=== PATIENT | male | born 1990 | race Caucasian/White ===

== ENCOUNTER 2016-07-13 16:18 | Emergency (ER) | payer OTHER ==
[2016-07-13 16:49] VITALS: BP 96/48; PULSE 66; RESP 16; TEMP 98; O2SAT 100
--- NOTE | 2016-07-13 17:31 | ED PDOC ---
HPI: Skin/Bite Injury Time Seen by Provider: 07/13/16 17:15 Chief Complaint (Nursing): Lower Extremity Problem/Injury Chief Complaint (Provider): left foot History Per: Patient History/Exam Limitations: no limitations Onset/Duration Of Symptoms: Days (x 2 weeks) Current Symptoms Are (Timing): Still Present Additional Complaint(s): Power Starr is a 25 year old male, with a previous medical history of asthma , who presents to the ED for evaluation of his left foot. Pt reports skin is itchy and noted changes in the skin of his foot. Pt denies any numbness, tingling, fever or chills. Pt denies any additional complaints at this time. PMD: [facility] Past Medical History Reviewed: Historical Data, Nursing Documentation, Vital Signs Vital Signs: Last Vital Signs Temp 98.0 F 07/13/16 16:47 Pulse 66 07/13/16 16:47 Resp 16 07/13/16 16:47 BP 96/48 L 07/13/16 16:47 Pulse Ox 100 07/13/16 23:39 - Medical History PMH: Asthma, Depression Denies: Diabetes, Hepatitis, HIV, HTN, Chronic Kidney Disease, Seizures, Sexually Transmitted Disease - Surgical History Surgical History: No Surg Hx - Family History Family History: States: No Known Family Hx - Home Medications Home Medications: Ambulatory Orders Medication Instructions Recorded Butenafine HCl [Lotrimin Ultra] 0.5 gm TP BID #30 cream..g. 07/13/16 - Allergies Allergies/Adverse Reactions: Allergies Allergy/AdvReac Type Severity Reaction Status Date / Time seafood Allergy Mild RASH Uncoded 07/13/16 16:46 Review of Systems ROS Statement: Except As Marked, All Systems Reviewed And Found Negative Skin: Positive for: Other (itching left foot) Physical Exam - Reviewed Nursing Documentation Reviewed: Yes Vital Signs Reviewed: Yes - Physical Exam Appears: Positive for: Well, Non-toxic, No Acute Distress Extremity: Positive for: Normal ROM, Capillary Refill (< 2 seconds), Other ( patches of thick scally material along plantar surface of left foot with mild scaly dry patches between the toes.). Negative for: Tenderness, Pedal Edema, Calf Tenderness Neurologic/Psych: Positive for: Alert, Oriented - ECG O2 Sat by Pulse Oximetry: 100 (RA) Pulse Ox Interpretation: Normal Medical Decision Making Medical Decision Making: Initial Impression: Tinea Pedis Initial Plan: * physical exam * disposition Scribe Attestation: Documented by Val Ma, acting as a scribe for Jairon Mohan PA-C. Provider Scribe Attestation: All medical record entries made by the Scribe were at my direction and personally dictated by me. I have reviewed the chart and agree that the record accurately reflects my personal performance of the history, physical exam, medical decision making, and the department course for this patient. I have also personally directed, reviewed, and agree with the discharge instructions and disposition. Disposition - Clinical Impression Clinical Impression: Tinea pedis - Patient ED Disposition Is Patient to be Admitted: No - Disposition Referrals: [facility] [Outside] Disposition: Routine/Home Disposition Time: 17:25 Condition: FAIR Prescriptions: Butenafine HCl [Lotrimin Ultra] 0.5 gm TP BID #30 cream..g. Instructions: Tinea Pedis (ED) Forms: [facility] ED School/Work Excuse
== END 2016-07-13 17:25 | disposition home or self-care (01) ==
LOC: H.ER 16:18
DX: B35.3 Tinea pedis (principal)

== ENCOUNTER 2016-11-15 17:28 | Emergency (ER) | payer OTHER ==
[2016-11-15 17:34] VITALS: BP 123/59; PULSE 63; RESP 16; TEMP 97.8; O2SAT 99
--- NOTE | 2016-11-15 17:57 | ED PDOC ---
Upper Extremity Pain/Injury Time Seen by Provider: 11/15/16 17:41 Chief Complaint (Nursing): Upper Extremity Problem/Injury Chief Complaint (Provider): Right hand pain History Per: Patient History/Exam Limitations: no limitations Current Symptoms Are (Timing): Still Present Quality: "Pain" Additional Complaint(s): Power Starr is a 26 y/o left-handed dominant male presenting to the ER on with complaints of right hand pain. Patient reports he sustained the pain after punching a wall about a week ago. Denies any numbness or weakness to the area. Past Medical History Reviewed: Historical Data, Nursing Documentation, Vital Signs Vital Signs: Last Vital Signs Temp 97.8 F 11/15/16 17:33 Pulse 63 11/15/16 17:33 Resp 16 11/15/16 17:33 BP 123/59 L 11/15/16 17:33 Pulse Ox 99 11/15/16 17:33 - Medical History PMH: Asthma, Depression Denies: Diabetes, Hepatitis, HIV, HTN, Chronic Kidney Disease, Seizures, Sexually Transmitted Disease - Surgical History Surgical History: No Surg Hx - Family History Family History: States: Unknown Family Hx - Social History Current smoker - smoking cessation education provided: Yes Ex-Smoker (has not smoked in the last 12 months): No - Home Medications Home Medications: Ambulatory Orders Medication Instructions Recorded Butenafine HCl [Lotrimin Ultra] 0.5 gm TP BID #30 cream..g. 07/13/16 - Allergies Allergies/Adverse Reactions: Allergies Allergy/AdvReac Type Severity Reaction Status Date / Time seafood Allergy Mild RASH Uncoded 07/13/16 16:46 Review of Systems ROS Statement: Except As Marked, All Systems Reviewed And Found Negative Musculoskeletal: Positive for: Hand Pain Neurological: Negative for: Weakness, Numbness Physical Exam - Reviewed Nursing Documentation Reviewed: Yes Vital Signs Reviewed: Yes - Physical Exam Appears: Positive for: Non-toxic, No Acute Distress Head Exam: Positive for: ATRAUMATIC, NORMOCEPHALIC Skin: Positive for: Normal Color. Negative for: Rash Eye Exam: Positive for: Normal appearance Neck: Positive for: Normal Extremity: Positive for: Tenderness, Capillary Refill (intact), Deformity ((+) deformity to 5th metacarpal ), Swelling Neurologic/Psych: Positive for: Alert, Oriented. Negative for: Motor/Sensory Deficits - ECG O2 Sat by Pulse Oximetry: 99 Medical Decision Making Medical Decision Makin:41 Initial Impression- 26 y/o with right hand pain Initial Plan- * XR Right Hand * Ibuprofen 600 mg PO Pt requires no further treatment and will be discharged routinely. Pt was advised to keep the injured area iced and elevated. Pt will schedule a follow- up with referred specialist within 2-3 days. Condition is stable for discharge. Clinical Impression- Boxers Fracture Documented by Em John, acting as a scribe for Sosa Hernandez PA-C All medical record entries made by the Scribe were at my direction and personally dictated by me. I have reviewed the chart and agree that the record accurately reflects my personal performance of the history, physical exam, medical decision making, and the department course for this patient. I have also personally directed, reviewed, and agree with the discharge instructions and disposition. Disposition - Clinical Impression Clinical Impression: Boxers fracture - Disposition Referrals: [facility] [Outside] Sandi Grijalva MD [Staff Provider] - Disposition Time: 18:04 Condition: GOOD Additional Instructions: Ice, elevation. Please follow-up with hand specialist. Instructions: Boxer Fracture (ED) Forms: [employer] (Palestinian)
--- NOTE | 2016-11-15 18:05 | ED PDOC ---
Upper Extremity Pain/Injury Time Seen by Provider: 11/15/16 17:41 Chief Complaint (Nursing): Upper Extremity Problem/Injury Past Medical History Vital Signs: Last Vital Signs Temp 97.8 F 11/15/16 17:33 Pulse 63 11/15/16 17:33 Resp 16 11/15/16 17:33 BP 123/59 L 11/15/16 17:33 Pulse Ox 99 11/15/16 17:33 - Medical History PMH: Asthma, Depression Denies: Diabetes, Hepatitis, HIV, HTN, Chronic Kidney Disease, Seizures, Sexually Transmitted Disease - Surgical History Surgical History: No Surg Hx - Family History Family History: States: No Known Family Hx - Home Medications Home Medications: Ambulatory Orders Medication Instructions Recorded Butenafine HCl [Lotrimin Ultra] 0.5 gm TP BID #30 cream..g. 07/13/16 - Allergies Allergies/Adverse Reactions: Allergies Allergy/AdvReac Type Severity Reaction Status Date / Time seafood Allergy Mild RASH Uncoded 07/13/16 16:46 - ECG O2 Sat by Pulse Oximetry: 99 Disposition - Clinical Impression Clinical Impression: Boxers fracture - Patient ED Disposition Is Patient to be Admitted: No Counseled Patient/Family Regarding: Diagnosis, Need For Followup - Disposition Referrals: Sandi Grijalva MD [Staff Provider] - [facility] [Outside] Disposition: Routine/Home Disposition Time: 17:53 Condition: GOOD Additional Instructions: Ice, elevation. Please follow-up with hand specialist. Instructions: Boxer Fracture (ED) Forms: [employer] (Nigerien)
--- NOTE | 2016-11-15 20:31 | RAD ---
PROCEDURE: Right Hand Radiographs. HISTORY: 5th metacarpal pain after punching wall COMPARISON: None. FINDINGS: BONES: Complete transverse fracture of the 5th metacarpal neck, consistent with a boxer's fracture. Mild Virgen displacement of the distal fracture fragment. JOINTS: No dislocation seen. Bony articulations appear maintained. SOFT TISSUES: Soft tissue swelling about the 5th digit. OTHER FINDINGS: None. IMPRESSION: Complete transverse fracture 5th metacarpal neck, consistent with boxer's fracture.
== END 2016-11-15 18:27 | disposition home or self-care (01) ==
LOC: H.ER 17:28
DX: S62.336A Displaced fracture of neck of fifth metacarpal bone, right hand, initial encounter for closed fracture (principal); W22.01XA Walked into wall, initial encounter

== ENCOUNTER 2016-11-19 23:37 | Observation (INO) | payer OTHER ==
[2016-11-19 23:48] VITALS: BMI 20.7
[2016-11-19] MEDS ORDERED: Sodium Chloride 0.9% 2,000 ML IV STA (23:48)
[2016-11-19] MEDS ORDERED: Naloxone 0.4 mg/ml Inj (Adult) IVP STA (23:48)
[2016-11-19 23:50] VITALS: RESP 14
--- NOTE | 2016-11-20 00:17 | ED PDOC ---
HPI: Psych/Substance Abuse Time Seen by Provider: 11/19/16 23:47 Chief Complaint (Nursing): Substance Abuse Chief Complaint (Provider): Substance abuse History Per: EMS History/Exam Limitations: other (unconscious) Onset/Duration Of Symptoms: Mins ([employer]) Current Symptoms Are (Timing): Still Present Additional Complaint(s): Power Starr is a 26 year old male, with a past medical history of asthma and depression, who presents to the emergency department via EMS since patient was found unconscious on street prior to arrival. Full history unobtainable due to patient's current condition. PMD: None provided Past Medical History Reviewed: Historical Data, Nursing Documentation, Vital Signs Vital Signs: Last Vital Signs Temp Pulse 124 H 11/19/16 23:48 Resp 14 11/19/16 23:48 BP 118/74 11/19/16 23:48 Pulse Ox 100 11/19/16 23:48 - Medical History PMH: Asthma, Depression Denies: Diabetes, Hepatitis, HIV, HTN, Chronic Kidney Disease, Seizures, Sexually Transmitted Disease - Family History Family History: States: Unknown Family Hx - Social History Current smoker - smoking cessation education provided: Yes (<10 cigarettes daily ) Alcohol: None - Home Medications Home Medications: Ambulatory Orders Medication Instructions Recorded Butenafine HCl [Lotrimin Ultra] 0.5 gm TP BID #30 cream..g. 07/13/16 - Allergies Allergies/Adverse Reactions: Allergies Allergy/AdvReac Type Severity Reaction Status Date / Time seafood Allergy Mild RASH Uncoded 07/13/16 16:46 Review of Systems ROS Statement: Except As Marked, All Systems Reviewed And Found Negative Neurological: Positive for: Other (unconscious) Physical Exam - Reviewed Nursing Documentation Reviewed: Yes Vital Signs Reviewed: Yes - Physical Exam Appears: Positive for: Well, Non-toxic, No Acute Distress Head Exam: Positive for: ATRAUMATIC, NORMAL INSPECTION, NORMOCEPHALIC Skin: Positive for: Normal Color, Warm, Dry Eye Exam: Positive for: EOMI, Normal appearance, PERRL Respiratory: Positive for: Normal Breath Sounds (breathing but unresponsive), Other (tachycardic lung). Negative for: Respiratory Distress Extremity: Positive for: Normal ROM Neurologic/Psych: Positive for: Alert, Oriented, Other (squeezing eye and hands occasionally) - Laboratory Results Result Diagrams: 11/19/16 00:16 11/19/16 00:16 - ECG O2 Sat by Pulse Oximetry: 100 (RA) Pulse Ox Interpretation: Normal Medical Decision Making Medical Decision Making: Initial Impression: Drug abuse Initial Plan: --EKG --Acetaminophen --Alcohol serum --Basic Metabolic Panel --Drug screen, urine --Salicylate --CBC w/ differential --Narcan --NS IV 2,000ml at 1,000mls/hr --Urinalysis --reevaluation 630 Pt. waking up, more arousable, alert, and calm. Pending head CT. Will sign over to day team. Scribe Attestation: Documented by Ivan Ann, acting as a scribe for Otto Mattson MD. Provider Scribe Attestation: All medical record entries made by the Scribe were at my direction and personally dictated by me. I have reviewed the chart and agree that the record accurately reflects my personal performance of the history, physical exam, medical decision making, and the department course for this patient. I have also personally directed, reviewed, and agree with the discharge instructions and disposition. Disposition - Clinical Impression Clinical Impression: PCP abuse - Disposition Disposition: Transfer of Care Disposition Time: 07:00 Condition: IMPROVED Patient Signed Over To: Cirilo Foy III Handoff Comments: pending head CT
[2016-11-20 00:22] LABS: BASO # 0.1 K/uL (0.0-0.2); BASO % 0.5 % (0.0-2.0); EOS # 0.1 K/uL (0.0-0.7); EOS % 1.4 % (0.0-4.0); HEMATOCRIT 43.5 % (35.0-51.0); LYMPH # 4.2 K/uL (1.0-4.3); MEAN CORPUSCULAR HEMOGLOBIN 30.4 pg (27.0-31.0); MEAN CORPUSCULAR HGB CONC 34.2 g/dL (33.0-37.0); MEAN PLATELET VOLUME 7.7 fl (7.2-11.7); MONO # 0.6 K/uL (0.0-0.8); MONO % 5.3 % (0.0-10.0); NEUT # 5.6 K/uL (1.8-7.0); NEUT % 52.8 % (50.0-75.0); WHITE BLOOD COUNT 10.6 K/uL (4.8-10.8)
[2016-11-20 00:34] LABS: RBC URINE 1 /hpf (0-3); URINE BILIRUBIN NEGATIVE (NEGATIVE); URINE BLOOD NEGATIVE (NEGATIVE); URINE COLOR STRAW (YELLOW); URINE GLUCOSE (UA) NEG (Normal); URINE KETONE NEGATIVE (NEGATIVE); URINE LEUKOCYTE ESTERASE NEG Leu/uL (Negative); URINE PROTEIN NEGATIVE (NEGATIVE); URINE UROBILINOGEN 0.2-1.0 mg/dL (0.2-1.0); WBC URINE < 1 /hpf (0-5)
[2016-11-20 00:36] LABS: ALCOHOL SERUM 262 mg/dl (0-10); BLOOD UREA NITROGEN 13 mg/dl (9-20); CALCIUM 9.7 mg/dL (8.4-10.2); CARBON DIOXIDE 22 mmol/L (22-30); CHLORIDE 105 mmol/L (98-107); GFR AFRICAN-AMERICAN > 60; GLUCOSE,RANDOM 121 mg/dL (75-110); POTASSIUM 3.6 MMOL/L (3.6-5.0); SODIUM 145 mmol/l (132-148)
[2016-11-20 02:26] VITALS: BP 107/57; PULSE 82; TEMP 97.6
[2016-11-20 07:03] VITALS: O2SAT 100
--- NOTE | 2016-11-20 07:20 | ED PDOC ---
- Laboratory Results Result Diagrams: 11/19/16 00:16 11/19/16 00:16 - ECG O2 Sat by Pulse Oximetry: 100 (RA) Pulse Ox Interpretation: Normal Medical Decision Making Medical Decision Making: Time: 07:00 --Patient is signed out by Dr. Otto Mattson MD to me, pending Head CT Time: 07:[address]: FINDINGS: Brain: Unremarkable. No hemorrhage. No significant white matter disease. No edema. Ventricles: Unremarkable. No ventriculomegaly. Bones/joints: Unremarkable. No acute fracture. Soft tissues: Unremarkable. Sinuses: Unremarkable as visualized. No acute sinusitis. Mastoid air cells: Unremarkable as visualized. No mastoid effusion. IMPRESSION: No acute findings. Clinical Impression: PCP abuse, Cannabis abuse Upon provider evaluation patient is medically stable, and requires no further treatment in the ED at this time. Patient will be discharged home. Counseling was provided and all questions were answered regarding diagnosis and need for follow up with PMD. There is agreement to discharge plan. Return if symptoms persist or worsen. Scribe Attestation: Documented by Rosanna Paniagua, acting as a scribe for Cirilo Foy III, DO Provider Scribe Attestation: All medical record entries made by the Scribe were at my direction and personally dictated by me. I have reviewed the chart and agree that the record accurately reflects my personal performance of the history, physical exam, medical decision making, and the department course for this patient. I have also personally directed, reviewed, and agree with the discharge instructions and disposition. Disposition Counseled Patient/Family Regarding: Studies Performed, Diagnosis, Need For Followup - Clinical Impression Clinical Impression: PCP abuse, Cannabis abuse - POA Present On Arrival: None - Disposition Disposition: Routine/Home Disposition Time: 08:00 Condition: IMPROVED
--- NOTE | 2016-11-20 09:47 | CARD ---
APPROVED REPORT EKG Measurement Heart [id number] IN [id number] <Conclusion> Sinus tachycardia Otherwise normal ECG
--- NOTE | 2016-11-20 10:01 | CT ---
PROCEDURE: CT HEAD WITHOUT CONTRAST. HISTORY: found unconscious COMPARISON: None available. TECHNIQUE: Axial computed tomography images were obtained through the head/brain without intravenous contrast. Radiation dose: Total exam DLP = 2142.08 mGy-cm. This CT exam was performed using one or more of the following dose reduction techniques: Automated exposure control, adjustment of the mA and/or kV according to patient size, and/or use of iterative reconstruction technique. FINDINGS: HEMORRHAGE: No intracranial hemorrhage. BRAIN: No mass effect or edema. No atrophy or chronic microvascular ischemic changes. VENTRICLES: Unremarkable. No hydrocephalus. CALVARIUM: Unremarkable. PARANASAL SINUSES: Eriberto the thickening seen within few ethmoid air cells extending superiorly into the frontal sinus. . MASTOID AIR CELLS: Unremarkable as visualized. No inflammatory changes. OTHER FINDINGS: None. IMPRESSION: No intracranial hemorrhage.
== END 2016-11-20 07:16 | disposition home or self-care (01) ==
LOC: H.ER 23:37 → H.EROBSV 23:49
PROVIDERS: ADMIT Emergency Medicine; ATTEND Emergency Medicine
DX: F16.10 Hallucinogen abuse, uncomplicated (principal); F12.10 Cannabis abuse, uncomplicated; F17.210 Nicotine dependence, cigarettes, uncomplicated; J45.909 Unspecified asthma, uncomplicated
CPT/HCPCS: 36415; 70450; 80048; 80320; 80324; 80329; 80345; 80346; 80349; 80353; 80358; 80361; 81003; 83992; 85025; 93005; 96361; 96374; 99283; G0378; J2310; J7040

== ENCOUNTER 2016-11-24 10:59 | Emergency (ER) | payer OTHER ==
[2016-11-24 11:06] VITALS: BMI 19.2
[2016-11-24 11:07] VITALS: BP 127/69; PULSE 65; RESP 20; TEMP 98.2; O2SAT 99
--- NOTE | 2016-11-24 11:24 | ED PDOC ---
HPI: Skin/Bite Injury Time Seen by Provider: 11/24/16 11:17 Chief Complaint (Nursing): Abnormal Skin Integrity Chief Complaint (Provider): "pimple" History Per: Patient History/Exam Limitations: no limitations Additional Complaint(s): Power Starr is a 26 year old male, with no previous medical history, who presents to the ED for the evaluation of a "pimple" on his suprapubic area which he believes to be an ingrown hair. Patient is concerned for an infection and denies any medical complaints. PMD: none provided Past Medical History Reviewed: Historical Data, Nursing Documentation, Vital Signs Vital Signs: Last Vital Signs Temp 98.2 F 11/24/16 11:06 Pulse 65 11/24/16 11:06 Resp 20 11/24/16 11:06 BP 127/69 11/24/16 11:06 Pulse Ox 99 11/24/16 11:27 - Medical History PMH: Asthma, Depression Denies: Diabetes, Hepatitis, HIV, HTN, Chronic Kidney Disease, Seizures, Sexually Transmitted Disease - Family History Family History: States: Unknown Family Hx - Home Medications Home Medications: Ambulatory Orders Medication Instructions Recorded Butenafine HCl [Lotrimin Ultra] 0.5 gm TP BID #30 cream..g. 07/13/16 Mupirocin 2% Ointment [Bactroban 1 appl TP BID #1 tube 11/24/16 Ointment] - Allergies Allergies/Adverse Reactions: Allergies Allergy/AdvReac Type Severity Reaction Status Date / Time seafood Allergy Mild RASH Uncoded 11/24/16 11:19 Review of Systems ROS Statement: Except As Marked, All Systems Reviewed And Found Negative Skin: Positive for: Other ("pimple") Physical Exam - Reviewed Nursing Documentation Reviewed: Yes Vital Signs Reviewed: Yes - Physical Exam Appears: Positive for: Well, Non-toxic, No Acute Distress Head Exam: Positive for: ATRAUMATIC, NORMAL INSPECTION, NORMOCEPHALIC Skin: Positive for: Normal Color, Warm, Dry Eye Exam: Positive for: Normal appearance ENT: Positive for: Normal ENT Inspection Neck: Positive for: Normal Cardiovascular/Chest: Positive for: Regular Rate, Rhythm Respiratory: Positive for: Normal Breath Sounds Gastrointestinal/Abdominal: Positive for: Bowel Sounds, Soft, Other (3 mm cystic area to the suprapubic region with no errythema or drainage noted). Negative for: Tenderness Neurologic/Psych: Positive for: Alert, Oriented - ECG O2 Sat by Pulse Oximetry: 99 (RA) Pulse Ox Interpretation: Normal Medical Decision Making Medical Decision Making: Scribe Attestation: Documented by Val Ma, acting as a scribe for Giuseppe Suarez MD. Provider Scribe Attestation: All medical record entries made by the Scribe were at my direction and personally dictated by me. I have reviewed the chart and agree that the record accurately reflects my personal performance of the history, physical exam, medical decision making, and the department course for this patient. I have also personally directed, reviewed, and agree with the discharge instructions and disposition. Disposition - Clinical Impression Clinical Impression: Folliculitis - Patient ED Disposition Is Patient to be Admitted: No - Disposition Referrals: [facility] [Outside] Disposition: Routine/Home Disposition Time: 11:30 Condition: FAIR Prescriptions: Mupirocin 2% Ointment [Bactroban Ointment] 1 appl TP BID #1 tube Instructions: Folliculitis (ED) Forms: [employer] (Malay)
== END 2016-11-24 11:35 | disposition home or self-care (01) ==
LOC: H.ER 10:59
DX: L73.9 Follicular disorder, unspecified (principal)

== ENCOUNTER 2016-12-18 04:18 | Emergency (ER) | payer SELFPAY ==
[2016-12-18 04:19] VITALS: BMI 19.2
--- NOTE | 2016-12-18 04:26 | ED PDOC ---
HPI: Psych/Substance Abuse Time Seen by Provider: 12/18/16 04:23 Chief Complaint (Provider): crisis eval History Per: Patient Additional Complaint(s): 26 year old male presents to ED for crisis eval. Patient was acting bizarre by the pier and several people called police out of concern. Patient arrives with police for crisis eval. Patient is not under arrest. Patient states he has history of depression but he denies any suicidal or homicidal ideation upon arrival. Patient states he drank alcohol earlier this evening and he admits to smoking marijuana. Past Medical History Reviewed: Historical Data, Nursing Documentation, Vital Signs - Medical History PMH: Asthma, Depression - Family History Family History: States: No Known Family Hx - Living Arrangements Living Arrangements: With Family - Social History Current smoker - smoking cessation education provided: No Alcohol: Social Drugs: Cannabis - Home Medications Home Medications: Ambulatory Orders Medication Instructions Recorded Butenafine HCl [Lotrimin Ultra] 0.5 gm TP BID #30 cream..g. 07/13/16 Mupirocin 2% Ointment [Bactroban 1 appl TP BID #1 tube 11/24/16 Ointment] - Allergies Allergies/Adverse Reactions: Allergies Allergy/AdvReac Type Severity Reaction Status Date / Time seafood Allergy Mild RASH Uncoded 11/24/16 11:19 Review of Systems ROS Statement: Except As Marked, All Systems Reviewed And Found Negative Psych: Positive for: Suicidal ideation, Other (etoh, marijuana use) Physical Exam - Reviewed Nursing Documentation Reviewed: Yes Vital Signs Reviewed: Yes - Physical Exam Appears: Positive for: Well, Non-toxic, No Acute Distress Skin: Negative for: Rash Eye Exam: Positive for: Normal appearance Cardiovascular/Chest: Positive for: Regular Rate, Rhythm Respiratory: Positive for: Normal Breath Sounds Neurologic/Psych: Positive for: Alert, Oriented - Laboratory Results Result Diagrams: 12/18/16 05:00 12/18/16 05:00 - ECG O2 Sat by Pulse Oximetry: 98 Pulse Ox Interpretation: Normal Medical Decision Making Medical Decision Makin26 year old male here for crisis eval Plan: 1:1 observation CBC CMP BAL UDS UA Crisis eval Disposition - Clinical Impression Clinical Impression: Encounter for psychiatric assessment - Patient ED Disposition Is Patient to be Admitted: Transfer of Care - Disposition Disposition: Transfer of Care Disposition Time: 06:00 Condition: STABLE Patient Signed Over To: Otto Mattson Handoff Comments: Case was signed out to Dr. Mattson pending crisis disposition Results - Lab Results Lab Results: 12/18/16 12/18/16 12/18/16 05:00 05:00 05:00 WBC 15.7 H RBC 4.93 Hgb 14.7 Hct 44.7 MCV 90.7 MCH 29.9 MCHC 32.9 L RDW 13.7 Plt Count 314 Sodium Potassium Chloride Carbon Dioxide Anion Gap BUN Creatinine Est GFR ( Amer) Est GFR (Non-Af Amer) Random Glucose Calcium Total Bilirubin AST ALT Alkaline Phosphatase Total Protein Albumin Globulin Albumin/Globulin Ratio Urine Color Yellow Urine Clarity Slighty-cloudy Urine pH 7.0 Ur Specific [place] 1.015 Urine Protein Negative Urine Glucose (UA) Neg Urine Ketones Negative Urine Blood Negative Urine Nitrate Negative Urine Bilirubin Negative Urine Urobilinogen 0.2-1.0 Ur Leukocyte Esterase Neg Urine RBC (Auto) 1 Urine Microscopic WBC 1 Urine Opiates Screen Negative Urine Methadone Screen Negative Ur Barbiturates Screen Negative Ur Phencyclidine Scrn Positive H Ur Amphetamines Screen Negative U Benzodiazepines Scrn Negative U Oth Cocaine Metabols Negative U Cannabinoids Screen Positive H Alcohol, Quantitative 12/18/16 05:00 WBC RBC Hgb Hct MCV MCH MCHC RDW Plt Count Sodium 145 Potassium 3.8 Chloride 106 Carbon Dioxide 26 Anion Gap 17 BUN 12 Creatinine 1.0 Est GFR ( Amer) > 60 Est GFR (Non-Af Amer) > 60 Random Glucose 76 Calcium 10.1 Total Bilirubin 0.7 AST 34 ALT 34 Alkaline Phosphatase 59 Total Protein 8.5 H Albumin 5.2 H Globulin 3.4 Albumin/Globulin Ratio 1.5 Urine Color Urine Clarity Urine pH Ur Specific [place] Urine Protein Urine Glucose (UA) Urine Ketones Urine Blood Urine Nitrate Urine Bilirubin Urine Urobilinogen Ur Leukocyte Esterase Urine RBC (Auto) Urine Microscopic WBC Urine Opiates Screen Urine Methadone Screen Ur Barbiturates Screen Ur Phencyclidine Scrn Ur Amphetamines Screen U Benzodiazepines Scrn U Oth Cocaine Metabols U Cannabinoids Screen Alcohol, Quantitative 95 H
[2016-12-18 04:31] VITALS: BP 122/76; PULSE 72; RESP 16; TEMP 98.2; O2SAT 98
[2016-12-18 05:06] LABS: HEMATOCRIT 44.7 % (35.0-51.0); MEAN CELL VOLUME 90.7 fl (80.0-94.0); MEAN CORPUSCULAR HEMOGLOBIN 29.9 pg (27.0-31.0); MEAN CORPUSCULAR HGB CONC 32.9 g/dL (33.0-37.0); RED CELL DISTRIBUTION WIDTH 13.7 % (11.5-14.5); WHITE BLOOD COUNT 15.7 K/uL (4.8-10.8)
[2016-12-18 05:10] LABS: RBC URINE 1 /hpf (0-3); URINE BILIRUBIN NEGATIVE (NEGATIVE); URINE BLOOD NEGATIVE (NEGATIVE); URINE COLOR YELLOW (YELLOW); URINE GLUCOSE (UA) NEG (Normal); URINE KETONE NEGATIVE (NEGATIVE); URINE LEUKOCYTE ESTERASE NEG Leu/uL (Negative); URINE PROTEIN NEGATIVE (NEGATIVE); URINE UROBILINOGEN 0.2-1.0 mg/dL (0.2-1.0); WBC URINE 1 /hpf (0-5)
[2016-12-18 05:22] LABS: ALB/GLOB RATIO 1.5 (1.0-2.1); ALKALINE PHOSPHATASE 59 U/L (38-126); AST/SGOT 34 U/L (17-59); BILIRUBIN,TOTAL 0.7 mg/dl (0.2-1.3); BLOOD UREA NITROGEN 12 mg/dl (9-20); CALCIUM 10.1 mg/dL (8.4-10.2); CARBON DIOXIDE 26 mmol/L (22-30); CHLORIDE 106 mmol/L (98-107); GFR AFRICAN-AMERICAN > 60; GLUCOSE,RANDOM 76 mg/dL (75-110); POTASSIUM 3.8 MMOL/L (3.6-5.0); SODIUM 145 mmol/l (132-148); TOTAL PROTEIN 8.5 G/DL (6.3-8.2)
[2016-12-18 05:23] LABS: ALCOHOL SERUM 95 mg/dl (0-10); ALT/SGPT 34 U/L (21-72)
--- NOTE | 2016-12-18 12:18 | ED PDOC ---
- Laboratory Results Result Diagrams: 12/18/16 05:00 12/18/16 05:00 - ECG O2 Sat by Pulse Oximetry: 98 (RA) Pulse Ox Interpretation: Normal Medical Decision Making Medical Decision Making: Time: 8:00 --Patient is signed out to me by Dr. Otto Mattson, pending crisis evaluation and final disposition Time: 8:00 --Pending disposition from crisis Time: 12:10 --Patient cleared by crisis. Medically stable for discharge home. Clinical Impression: Adjustment disorder with depressed mood Scribe Attestation: Documented by Rosanna Paniagua, acting as a scribe for Víctor Frnaco MD Provider Scribe Attestation: All medical record entries made by the Scribe were at my direction and personally dictated by me. I have reviewed the chart and agree that the record accurately reflects my personal performance of the history, physical exam, medical decision making, and the department course for this patient. I have also personally directed, reviewed, and agree with the discharge instructions and disposition. Disposition Counseled Patient/Family Regarding: Diagnosis, Need For Followup - Clinical Impression Clinical Impression: Adjustment disorder with depressed mood, Alcohol abuse with intoxication - POA Present On Arrival: None - Disposition Referrals: [facility] [Outside] (2 to 3 days) Disposition: Routine/Home Disposition Time: 12:27 Condition: GOOD Instructions: Alcohol Intoxication (ED) Forms: [employer] (Portuguese)
== END 2016-12-18 12:40 | disposition home or self-care (01) ==
LOC: H.ER 04:18
DX: F43.21 Adjustment disorder with depressed mood (principal); F10.129 Alcohol abuse with intoxication, unspecified; F12.90 Cannabis use, unspecified, uncomplicated
CPT/HCPCS: 80053; 81003; 85027; 99283; G0480

== ENCOUNTER 2016-12-20 21:05 | Observation (INO) | payer SELFPAY ==
[2016-12-20 21:05] VITALS: BMI 19.2
[2016-12-20 21:11] VITALS: RESP 16; TEMP 98; O2SAT 99
[2016-12-20] MEDS ORDERED: Sodium Chloride 0.9% 1,000 ML IV STA (21:20)
[2016-12-20] MEDS ORDERED: Naloxone HCl 2mg/2ml syr IVP ONE (21:20)
--- NOTE | 2016-12-20 21:24 | ED PDOC ---
HPI: Psych/Substance Abuse Time Seen by Provider: 12/20/16 21:15 Chief Complaint (Nursing): Substance Abuse Chief Complaint (Provider): Unresponsive ED Caveat: Acuity of Condition History Per: EMS History/Exam Limitations: clinical condition Onset/Duration Of Symptoms: Days (today) Additional Complaint(s): Pt. was seen walking and then went to the ground and became unresponsive. Pt. got nasal narcan and became slightly more arousable. No other information available. Past Medical History Reviewed: Nursing Documentation, Vital Signs Vital Signs: Last Vital Signs Temp 98.0 F 12/20/16 21:06 Pulse 134 H 12/20/16 21:06 Resp 16 12/20/16 21:06 BP 135/96 H 12/20/16 21:06 Pulse Ox 99 12/20/16 21:06 - Medical History PMH: Denies: Diabetes, Hepatitis, HIV, HTN, Chronic Kidney Disease, Seizures, Sexually Transmitted Disease - Family History Family History: States: Unknown Family Hx - Home Medications Home Medications: Ambulatory Orders Medication Instructions Recorded Butenafine HCl [Lotrimin Ultra] 0.5 gm TP BID #30 cream..g. 07/13/16 Mupirocin 2% Ointment [Bactroban 1 appl TP BID #1 tube 11/24/16 Ointment] - Allergies Allergies/Adverse Reactions: Allergies Allergy/AdvReac Type Severity Reaction Status Date / Time seafood Allergy Mild RASH Uncoded 12/20/16 21:06 Review of Systems Review Of Systems: ROS cannot be obtained secondary to pt's inabilty to answer questions. Physical Exam - Reviewed Nursing Documentation Reviewed: Yes Vital Signs Reviewed: Yes - Physical Exam Appears: Positive for: Uncomfortable Head Exam: Positive for: NORMAL INSPECTION Skin: Positive for: Normal Color, Warm, DRY Eye Exam: Positive for: PERRL ENT: Positive for: Other (gag present). Negative for: Pharyngeal Erythema Neck: Positive for: Supple Cardiovascular/Chest: Positive for: Regular Rate, Rhythm. Negative for: Edema Respiratory: Positive for: Decreased Breath Sounds. Negative for: Accessory Muscle Use, Wheezing Gastrointestinal/Abdominal: Positive for: Soft Back: Positive for: Normal Inspection Extremity: Negative for: Pedal Edema Neurologic/Psych: Positive for: Other (pain only withdraws as responsive to pain ; no verbal communication; does not follow any commands) - Laboratory Results Result Diagrams: 12/20/16 21:31 12/20/16 21:31 Interpretation Of Abn Labs: pcp, marijuana, etoh - ECG ECG: Positive for: Interpreted By Me, Viewed By Me ECG Rhythm: Positive for: Normal QRS, Normal ST Segment, Sinus Rhythm O2 Sat by Pulse Oximetry: 99 Pulse Ox Interpretation: Normal - Radiology X-Ray: Interpreted by Me, Viewed By Me X-Ray Interpretation: No Acute Disease - CT Scan/US head Other Rad Studies (CT/US): Read By Radiologist Other Rad Interpretation: no acute ED OBSERVATION Date of observation admission: 12/20/16 Time of observation admission: 21:30 - Observation admission statement Patient is being placed in observation because:: pt. eval for unresponsiveness - Goals of Observation Goals of observation are:: eval for condition 2130: Pt. aggressive occasionally. Will consider restraints and 1-1. - Progress Note Progress Note: 12/20/16 23:40 Dr. Mattson to take over care. FU on sobriety. Disposition - Clinical Impression Clinical Impression: PCP (phencyclidine) abuse, Alcohol abuse - Patient ED Disposition Is Patient to be Admitted: Transfer of Care - Disposition Disposition: Transfer of Care Disposition Time: 23:41 Condition: STABLE Patient Signed Over To: Otto Mattson
[2016-12-20 21:40] LABS: BASO # 0.1 K/uL (0.0-0.2); BASO % 0.6 % (0.0-2.0); EOS # 0.1 K/uL (0.0-0.7); EOS % 1.3 % (0.0-4.0); LYMPH # 4.5 K/uL (1.0-4.3); LYMPH % 45.8 % (20.0-40.0); MEAN CELL VOLUME 88.7 fl (80.0-94.0); MEAN CORPUSCULAR HEMOGLOBIN 30.5 pg (27.0-31.0); MEAN CORPUSCULAR HGB CONC 34.4 g/dL (33.0-37.0); MEAN PLATELET VOLUME 7.4 fl (7.2-11.7); MONO # 0.6 K/uL (0.0-0.8); NEUT # 4.6 K/uL (1.8-7.0); NEUT % 46.3 % (50.0-75.0); NRBC % 0.2 % (0.0-0.0); RED CELL DISTRIBUTION WIDTH 13.2 % (11.5-14.5); WHITE BLOOD COUNT 9.9 K/uL (4.8-10.8)
[2016-12-20] MEDS ORDERED: Naloxone 0.4 mg/ml Inj (Adult) ONE (21:40)
[2016-12-20 21:54] LABS: ALB/GLOB RATIO 1.6 (1.0-2.1); ALCOHOL SERUM 258 mg/dl (0-10); ALKALINE PHOSPHATASE 48 U/L (38-126); ALT/SGPT 38 U/L (21-72); AST/SGOT 30 U/L (17-59); BILIRUBIN,TOTAL 0.7 mg/dl (0.2-1.3); BLOOD UREA NITROGEN 14 mg/dl (9-20); CALCIUM 9.8 mg/dL (8.4-10.2); CARBON DIOXIDE 21 mmol/L (22-30); CHLORIDE 105 mmol/L (98-107); GFR AFRICAN-AMERICAN > 60; GLUCOSE,RANDOM 121 mg/dL (75-110); POTASSIUM 3.6 MMOL/L (3.6-5.0); SODIUM 143 mmol/l (132-148)
[2016-12-20 22:01] LABS: PARTIAL THROMBOPLASTIN TIME 29.6 Seconds (25.6-37.1)
[2016-12-20 22:03] LABS: VENOUS BLOOD GAS BASE EXCESS 0.7 mmol/L (0.0-2.0); VENOUS BLOOD GAS PCO2 43 mmHg (40-60); VENOUS BLOOD PH 7.39 (7.32-7.43)
--- NOTE | 2016-12-21 00:54 | ED PDOC ---
- Laboratory Results Result Diagrams: 12/20/16 21:31 12/20/16 21:31 - ECG O2 Sat by Pulse Oximetry: 99 Medical Decision Making Medical Decision Making: Patient signed over to me by Dr. John pending sobriety from drugs and alcohol. 130AM: Pt. is now awake and alert, vitals improved. A&O x 3 w/ steady gait. Will d/c home. Scribe Attestation: Documented by Larry Hyatt, acting as a scribe for Otto Mattson MD. Provider Scribe Attestation: All medical record entries made by the Scribe were at my direction and personally dictated by me. I have reviewed the chart and agree that the record accurately reflects my personal performance of the history, physical exam, medical decision making, and the department course for this patient. I have also personally directed, reviewed, and agree with the discharge instructions and disposition. Disposition - Clinical Impression Clinical Impression: PCP (phencyclidine) abuse, Alcohol abuse - POA Present On Arrival: None - Disposition Disposition: Routine/Home Disposition Time: 01:33 Condition: STABLE
[2016-12-21 01:31] VITALS: BP 115/80; PULSE 75
[2016-12-21 01:44] LABS: VENOUS BLOOD GAS BASE EXCESS 1.6 mmol/L (0.0-2.0); VENOUS BLOOD GAS PCO2 60 mmHg (40-60)
--- NOTE | 2016-12-21 09:25 | CT ---
PROCEDURE: CT HEAD WITHOUT CONTRAST. HISTORY: headache COMPARISON: 11/20/2016 CT head. Summary of findings on the comparison examination: No intracranial hemorrhage. TECHNIQUE: Axial computed tomography images were obtained through the head/brain without intravenous contrast. Radiation dose: Total exam DLP = 830.62 mGy-cm. This CT exam was performed using one or more of the following dose reduction techniques: Automated exposure control, adjustment of the mA and/or kV according to patient size, and/or use of iterative reconstruction technique. FINDINGS: HEMORRHAGE: No intracranial hemorrhage. BRAIN: No mass effect or edema. No atrophy or chronic microvascular ischemic changes. VENTRICLES: Unremarkable. No hydrocephalus. CALVARIUM: Unremarkable. PARANASAL SINUSES: Artemio ethmoid air cell disease. MASTOID AIR CELLS: Unremarkable as visualized. No inflammatory changes. OTHER FINDINGS: None. IMPRESSION: No acute intracranial abnormalities. No significant findings to account for the clinical presentation. No significant interval change compared to the prior examination(s). Concordant results (preliminary interpretation) provided by [facility]. Procedure Completed: 22:07. Preliminary ([facility]) Report: Dictated and Authenticated: 22:59. Final Interpretation: 09:23. December 21, 2016.
--- NOTE | 2016-12-21 11:30 | RAD ---
HISTORY: unresponsive COMPARISON: Chest radiographs 01/19/2011. FINDINGS: LUNGS: No active pulmonary disease. PLEURA: No significant pleural effusion identified, no pneumothorax apparent. CARDIOVASCULAR: Normal. OSSEOUS STRUCTURES: No significant abnormalities. VISUALIZED UPPER ABDOMEN: Normal. OTHER FINDINGS: None. IMPRESSION: No interval acute cardiopulmonary disease appreciable.
--- NOTE | 2016-12-21 16:50 | CARD ---
APPROVED REPORT EKG Measurement Heart [id number] <Conclusion> Normal sinus rhythm Normal ECG
== END 2016-12-21 01:29 | disposition home or self-care (01) ==
LOC: H.ER 21:05 → H.EROBSV 21:19
PROVIDERS: ADMIT Emergency Medicine; ATTEND Emergency Medicine
DX: F16.10 Hallucinogen abuse, uncomplicated (principal); F10.10 Alcohol abuse, uncomplicated; Y90.8 Blood alcohol level of 240 mg/100 ml or more; Z78.1 Physical restraint status
CPT/HCPCS: 70450; 71010; 80053; 82550; 82803; 82948; 84484; 85025; 85610; 85730; 93005; 96361; 96374; 99285; G0378; G0480; J7040

== ENCOUNTER 2017-01-24 18:15 | Emergency (ER) | payer SELFPAY ==
[2017-01-24 18:25] VITALS: BMI 21.5
[2017-01-24] MEDS ORDERED: Sodium Chloride 0.9% 1,000 ML IV STA (18:25)
[2017-01-24 18:43] LABS: BASO # 0.1 K/uL (0.0-0.2); BASO % 0.9 % (0.0-2.0); EOS # 0.1 K/uL (0.0-0.7); EOS % 1.3 % (0.0-4.0); HEMATOCRIT 43.6 % (35.0-51.0); LYMPH # 2.5 K/uL (1.0-4.3); LYMPH % 33.7 % (20.0-40.0); MEAN CELL VOLUME 91.2 fl (80.0-94.0); MEAN CORPUSCULAR HEMOGLOBIN 30.3 pg (27.0-31.0); MEAN CORPUSCULAR HGB CONC 33.2 g/dL (33.0-37.0); MEAN PLATELET VOLUME 7.5 fl (7.2-11.7); MONO # 0.4 K/uL (0.0-0.8); MONO % 5.3 % (0.0-10.0); NEUT # 4.4 K/uL (1.8-7.0); NEUT % 58.8 % (50.0-75.0); NRBC % 0.1 % (0.0-0.0); RED CELL DISTRIBUTION WIDTH 13.5 % (11.5-14.5); WHITE BLOOD COUNT 7.4 K/uL (4.8-10.8)
--- NOTE | 2017-01-24 18:49 | ED PDOC ---
HPI: Altered Mental Status Time Seen by Provider: 01/24/17 18:25 Chief Complaint (Nursing): Altered Mental Status Chief Complaint (Provider): AMS, Possible Overdose, Unresponsive History Per: EMS History/Exam Limitations: Intoxication Additional Complaint(s): Patient is a 26 y/o male who was brought to the ED by [facility], who found him passed out on the street. EMS gave him narcan with no effect and brought him here for evaluation. He is unresponsive except with pain and loud verbal stimulation. Patient is unable to give history due to his condition, but has been to this ED before for similar symptoms, and is known to have a history of drug abuse, including marijuana, PCP, and alcohol. He also has a history of depression. PMD: None Provided Past Medical History Reviewed: Historical Data, Nursing Documentation, Vital Signs - Medical History PMH: Asthma, Depression Denies: Diabetes, Hepatitis, HIV, HTN, Chronic Kidney Disease, Seizures, Sexually Transmitted Disease - Surgical History Surgical History: No Surg Hx - Family History Family History: States: Unknown Family Hx - Social History Alcohol: > 2 Drinks/Day Drugs: Other (marijuana, PCP) - Home Medications Home Medications: Ambulatory Orders Medication Instructions Recorded Butenafine HCl [Lotrimin Ultra] 0.5 gm TP BID #30 cream..g. 07/13/16 Mupirocin 2% Ointment [Bactroban 1 appl TP BID #1 tube 11/24/16 Ointment] - Allergies Allergies/Adverse Reactions: Allergies Allergy/AdvReac Type Severity Reaction Status Date / Time seafood Allergy Mild RASH Uncoded 12/20/16 21:06 Review of Systems Review Of Systems: ROS cannot be obtained secondary to pt's inabilty to answer questions. Physical Exam - Physical Exam Appears: Positive for: No Acute Distress Head Exam: Positive for: NORMAL INSPECTION, NORMOCEPHALIC. Negative for: ATRAUMATIC (swelling and ecchymosis above right eyebrow) Skin: Positive for: Normal Color, Warm, Dry Eye Exam: Positive for: Normal appearance, EOMI, PERRL. Negative for: Nystagmus ENT: Positive for: Normal ENT Inspection Neck: Positive for: Normal, Painless ROM, Supple Cardiovascular/Chest: Positive for: Regular Rate, Rhythm Respiratory: Positive for: CNT, Normal Breath Sounds Gastrointestinal/Abdominal: Positive for: Normal Exam, Bowel Sounds, Soft. Negative for: Tenderness Back: Positive for: Normal Inspection Extremity: Positive for: Normal ROM Neurologic/Psych: Positive for: Other (unresponsive except with pain and loud verbal stimulation). Negative for: Alert (obtunded) - Laboratory Results Result Diagrams: 01/24/17 18:40 01/24/17 18:40 Medical Decision Making Medical Decision Making: Time: 18:25 Initial Impression: AMS and poss. overdose - PCP, alcohol overdose, secondary head injury, rule out intracranial bleeding. Initial Plan: --CT Head w/o Contrast --Acetominophen --Alcohol Serum --CMP --Urine Drug Screen --Salicylate --CBC Time: 19:00 --Patient is tranferred by me to Dr. Otto Mattson pending CT and reevaluation. Scribe Attestation: Documented by Corby Ward, acting as a scribe for Dr. John Freeman MD. Provider Scribe Attestation: All medical record entries made by the Scribe were at my direction and personally dictated by me. I have reviewed the chart and agree that the record accurately reflects my personal performance of the history, physical exam, medical decision making, and the department course for this patient. I have also personally directed, reviewed, and agree with the discharge instructions and disposition. Disposition - Clinical Impression Clinical Impression: PCP (phencyclidine) abuse, Alcohol abuse with intoxication, Head injury - Patient ED Disposition Is Patient to be Admitted: Transfer of Care Counseled Patient/Family Regarding: Studies Performed, Diagnosis - Disposition Referrals: [facility] [Outside] Disposition: Transfer of Care Disposition Time: 19:00 Condition: STABLE Instructions: Abuse of Alcohol (ED), Polysubstance Abuse (ED) Forms: [employer] (Malay)
[2017-01-24 18:55] LABS: ALB/GLOB RATIO 1.6 (1.0-2.1); ALCOHOL SERUM 194 mg/dl (0-10); ALKALINE PHOSPHATASE 42 U/L (38-126); ALT/SGPT 39 U/L (21-72); AST/SGOT 27 U/L (17-59); BILIRUBIN,TOTAL 0.3 mg/dl (0.2-1.3); BLOOD UREA NITROGEN 9 mg/dl (9-20); CALCIUM 9.6 mg/dL (8.4-10.2); CARBON DIOXIDE 27 mmol/L (22-30); CHLORIDE 106 mmol/L (98-107); GFR AFRICAN-AMERICAN > 60; GLUCOSE,RANDOM 91 mg/dL (75-110); POTASSIUM 3.6 MMOL/L (3.6-5.0); SODIUM 147 mmol/l (132-148); TOTAL PROTEIN 7.8 G/DL (6.3-8.2)
--- NOTE | 2017-01-24 19:40 | CT ---
EXAM: CT Head Without Intravenous Contrast EXAM DATE/TIME: 01/24/2017 6:25 PM CLINICAL HISTORY: 26 years old, male; Injury or trauma; Fall; Initial encounter; Abrasion; Forehead; Injury date: 01/24/2017; Additional info: Head injury TECHNIQUE: Axial computed tomography images of the head/brain without intravenous contrast. All CT scans at this facility use one or more dose reduction techniques, viz.: automated exposure control; ma/kV adjustment per patient size (including targeted exams where dose is matched to indication; i.e. head); or iterative reconstruction technique. Coronal and sagittal reformatted images were created and reviewed. COMPARISON: Prior head CT of 2016-12-20 FINDINGS: BRAIN: No significant acute abnormality identified. No acute hemorrhage seen within the brain. No acute extra-axial fluid collections visualized. No evidence of significant mass effect within the brain. Normal ray-white matter differentiation. VENTRICLES: No evidence of significant hydrocephalus. BONES/JOINTS: No acute fractures or other acute bony abnormality noted. SOFT TISSUES: Mild soft tissue swelling in the right supraorbital scalp. SINUSES: Mild mucosal thickening in the ethmoid sinuses bilaterally. No evidence of sinus fluid levels. MASTOID AIR CELLS: Mastoid air cells appear clear. IMPRESSION: - No evidence of acute intracranial injury or fractures. - See above for remaining findings.
--- NOTE | 2017-01-24 19:53 | ED PDOC ---
- Laboratory Results Result Diagrams: 01/24/17 18:40 01/24/17 18:40 Medical Decision Making Medical Decision Making: Time: 19:00 --Patient signed out to me by Dr. John Freeman pending CT and reevaluation. Time: 19:40 CT HEAD FINDINGS: BRAIN: No significant acute abnormality identified. No acute hemorrhage seen within the brain. No acute extra-axial fluid collections visualized. No evidence of significant mass effect within the brain. Normal ray-white matter differentiation. VENTRICLES: No evidence of significant hydrocephalus. BONES/JOINTS: No acute fractures or other acute bony abnormality noted. SOFT TISSUES: Mild soft tissue swelling in the right supraorbital scalp. SINUSES: Mild mucosal thickening in the ethmoid sinuses bilaterally. No evidence of sinus fluid levels. MASTOID AIR CELLS: Mastoid air cells appear clear. IMPRESSION: - No evidence of acute intracranial injury or fractures. - See above for remaining findings. 3AM: Pt now awake and alert, admits to smoking PCP. Discussed dangers of drug abuse. No complaints of SI/HI. Will d/c home. Scribe Attestation: Documented by Corby Ward, acting as a scribe for Dr. Otto Mattson MD. Provider Scribe Attestation: All medical record entries made by the Scribe were at my direction and personally dictated by me. I have reviewed the chart and agree that the record accurately reflects my personal performance of the history, physical exam, medical decision making, and the department course for this patient. I have also personally directed, reviewed, and agree with the discharge instructions and disposition. Disposition - Clinical Impression Clinical Impression: PCP (phencyclidine) abuse, Alcohol abuse with intoxication - POA Present On Arrival: None - Disposition Referrals: [facility] [Outside] Disposition: Routine/Home Disposition Time: 04:00 Condition: STABLE Instructions: Abuse of Alcohol (ED), Polysubstance Abuse (ED) Forms: [employer] (Trinidadian)
== END 2017-01-25 04:38 | disposition home or self-care (01) ==
LOC: H.ER 18:15
DX: F10.129 Alcohol abuse with intoxication, unspecified (principal); F19.10 Other psychoactive substance abuse, uncomplicated; S09.90XA Unspecified injury of head, initial encounter; W19.XXXA Unspecified fall, initial encounter; Y92.89 Other specified places as the place of occurrence of the external cause; F32.9 Major depressive disorder, single episode, unspecified; J45.909 Unspecified asthma, uncomplicated
CPT/HCPCS: 70450; 80053; 85025; 96372; 99285; G0480; J1630; J2060; J7040